=== PATIENT | female | born 1980 | race American Indian/Alaskan Native ===

== ENCOUNTER 2022-02-09 03:38 | Emergency (ER) | payer SELFPAY ==
[2022-02-09] MEDS ORDERED: MAGNESIUM SULFATE 2 GM/50 ML BAG IV ONE (05:25)
[2022-02-09] MEDS ORDERED: ALBUTEROL 2.5 MG/3 ML NEBU IH ONE (05:25)
[2022-02-09] MEDS ORDERED: IPRATROPIUM 0.02% NEBU 2.5 ML IH ONE (05:25)
[2022-02-09] MEDS ORDERED: METOCLOPRAMIDE 10 MG/2 ML INJ IV ONE (05:27)
[2022-02-09] MEDS ORDERED: dexAMETHasone 20 MG/5 ML VIAL IV ONE (05:27)
[2022-02-09] MEDS ORDERED: diphenhydrAMINE 50 MG/ML VIAL IV ONE (05:27)
[2022-02-09 05:58] LABS: Basophils % (Auto) 0.6 % (0.0-1.8); Eosinophils # (Auto) 0.1 K/mm3 (0.0-0.4); Eosinophils % (Auto) 1.8 % (0.0-4.3); Hematocrit 40.4 % (30.3-42.9); Hemoglobin 13.6 gm/dl (10.1-14.3); Lymphocytes % (Auto) 26.6 % (13.4-35.0); Mean Corpuscular HGB Conc 34 % (30-34); Mean Corpuscular Volume 99 fl (79-97); Monocytes # (Auto) 0.6 K/mm3 (0.0-0.8); Monocytes % (Auto) 8.1 % (0.0-7.3); Platelet Count 281 K/mm3 (140-440); Red Blood Count 4.08 M/mm3 (3.65-5.03); Red Cell Distribution Width 13.4 % (13.2-15.2)
[2022-02-09] MEDS ORDERED: SODIUM CHLORIDE 0.9% 1000 ML 1,000 ML ONE (06:05)
--- NOTE | 2022-02-09 06:19 | XRay Report ---
XR chest 1V ap INDICATION / CLINICAL INFORMATION: Asthma, dyspnea, chest tightness. COMPARISON: None available. FINDINGS: SUPPORT DEVICES: None. HEART /PULMONARY VASCULATURE: No significant abnormality. LUNGS / PLEURA: Faint pulmonary opacities are present within the medial right lung base. No sizable p leural effusion. No pneumothorax. ADDITIONAL FINDINGS: No significant additional findings. IMPRESSION: Faint pulmonary opacities in the medial right lung base, may reflect atelectasis or pneumonia. Signer Name: James Serrano MD Signed: 02/09/2022 6:14 AM Workstation Name: [id number]
[2022-02-09 06:23] LABS: Alanine Aminotransferase 13 units/L (7-56); Albumin 4.4 g/dL (3.9-5); BUN/Creatinine Ratio 19; Blood Urea Nitrogen 15 mg/dL (7-17); Calcium 9.2 mg/dL (8.4-10.2); Hemolysis Index 25
--- NOTE | 2022-02-09 07:40 | Emergency Department Report ---
ED Shortness of Breath HPI - General Chief Complaint: Adult Asthma Stated Complaint: CHEST PAINS/SOB Source: patient Mode of arrival: Ambulatory Limitations: No Limitations - History of Present Illness Initial Comments: Patient is a 41-year-old -[place] female with a history of asthma tobacco abuse who presents to the ED with complaint of acute onset persistent shortness of breath, persistent dry cough, chest tightness and wheezing for the last 5 days. 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 Patient states that it is in the chewing subsequent days, her shortness of breath and wheezing have been worsening despite using her albuterol inhaler. Patient states that in the last 12 hours she has not been able to sleep because of worsening shortness of breath and chest tightness, nausea and vomiting and persistent dry cough. Patient denies fever, chills, abdominal pain, dizziness, syncope, palpitations, sore throat, neck pain, diaphoresis, diarrhea, hemoptysis lightheadedness or headache. MD Complaint: shortness of breath, cough, "asthma attack" -: days(s) (5) Severity: severe Pain Scale: 7 Quality: dull, other (Chest tightness) Consistency: constant Improves With: nothing Worsens With: coughing Known History Of: asthma Context: recent URI, allergen exposure, smoke/fume exposure Associated Symptoms: denies other symptoms, cough, other (Nausea and vomiting) Treatments Prior to Arrival: bronchodilator - Related Data Home Oxygen Therapy: No Previous Rx's Medication Instructions Recorded Last Taken Type Benzonatate [Tessalon Perles] 100 mg PO Q8HR #30 cap 02/09/22 Unknown Rx Cetirizine HCl [Zyrtec 10mg tab] 10 mg PO DAILY #30 tab 02/09/22 Unknown Rx Doxycycline Hyclate 100 mg PO Q12H #20 cap 02/09/22 Unknown Rx Ipratropium/Albuterol Sulfate 1 - 2 puff IH Q6H PRN #1 inh 02/09/22 Unknown Rx [Combivent Respimat] Ondansetron [Zofran Odt] 4 mg PO Q8HR PRN #20 tab.rapdis 02/09/22 Unknown Rx predniSONE [Deltasone] 60 mg PO QDAY #15 tab 02/09/22 Unknown Rx Allergies Allergy/AdvReac Type Severity Reaction Status Date / Time methylprednisolone Allergy Swelling Verified 02/09/22 03:42 [From Solu-Medrol] ED Review of Systems ROS: Stated complaint: CHEST PAINS/SOB Other details as noted in HPI Constitutional: denies: chills, fever Eyes: denies: eye pain, eye discharge, vision change ENT: congestion. denies: ear pain, throat pain Respiratory: cough, shortness of breath, wheezing Cardiovascular: chest pain (Chest tightness). denies: palpitations Endocrine: no symptoms reported Gastrointestinal: nausea, vomiting. denies: abdominal pain, diarrhea Genitourinary: denies: urgency, dysuria, discharge Musculoskeletal: denies: back pain, joint swelling, arthralgia Skin: denies: rash, lesions Neurological: denies: headache, weakness, paresthesias Psychiatric: denies: anxiety, depression Hematological/Lymphatic: denies: easy bleeding, easy bruising ED Past Medical Hx - Past Medical History Previous Medical History?: Yes Hx Asthma: Yes - Medications Home Medications: Home Medications Medication Instructions Recorded Confirmed Last Taken Type Benzonatate [Tessalon Perles] 100 mg PO Q8HR #30 cap 02/09/22 Unknown Rx Cetirizine HCl [Zyrtec 10mg tab] 10 mg PO DAILY #30 tab 02/09/22 Unknown Rx Doxycycline Hyclate 100 mg PO Q12H #20 cap 02/09/22 Unknown Rx Ipratropium/Albuterol Sulfate 1 - 2 puff IH Q6H PRN #1 inh 02/09/22 Unknown Rx [Combivent Respimat] Ondansetron [Zofran Odt] 4 mg PO Q8HR PRN #20 tab.rapdis 02/09/22 Unknown Rx predniSONE [Deltasone] 60 mg PO QDAY #15 tab 02/09/22 Unknown Rx ED Physical Exam - General Limitations: No Limitations General appearance: alert, in no apparent distress - Head Head exam: Present: atraumatic, normocephalic, normal inspection - Eye Eye exam: Present: normal appearance, PERRL, EOMI Pupils: Present: normal accommodation - ENT ENT exam: Present: normal orophraynx, mucous membranes moist, TM's normal bilaterally, normal external ear exam, other (Grossly congested nasal passages) - Neck Neck exam: Present: normal inspection, full ROM - Respiratory Respiratory exam: Present: respiratory distress (Mild respiratory distress), wheezes (Diffuse coarse wheezes throughout), accessory muscle use. Absent: normal lung sounds bilaterally, rales, rhonchi, stridor, chest wall tenderness, decreased breath sounds, prolonged expiratory - Cardiovascular Cardiovascular Exam: Present: normal rhythm, tachycardia, normal heart sounds. Absent: systolic murmur, diastolic murmur, rubs, gallop - GI/Abdominal GI/Abdominal exam: Present: soft, normal bowel sounds. Absent: tenderness, guarding, rebound, organomegaly - Extremities Exam Extremities exam: Present: normal inspection, full ROM, normal capillary refill. Absent: tenderness - Back Exam Back exam: Present: normal inspection, full ROM. Absent: tenderness, CVA tenderness (R), CVA tenderness (L), muscle spasm, paraspinal tenderness, vertebral tenderness - Neurological Exam Neurological exam: Present: alert, oriented X3, CN II-XII intact, normal gait, reflexes normal - Psychiatric Psychiatric exam: Present: normal affect, normal mood - Skin Skin exam: Present: warm, dry, intact, normal color. Absent: rash ED Course Vital Signs 02/09/22 03:39 Temperature 98.2 F Pulse Rate 107 H Respiratory 22 Rate Blood Pressure 141/93 [Left] O2 Sat by Pulse 98 Oximetry ED Medical Decision Making - Lab Data Result diagrams: 02/09/22 05:40 02/09/22 05:40 - Radiology Data Radiology results: report reviewed, image reviewed [address] [address] XRay Report Signed Patient: MARIANO PARRA MR#: [id number] : 1980 Acct:[id number] Age/Sex: 41 / F ADM Date: 02/09/22 Loc: ED Attending Dr: Ordering Physician: ASA ANDERSON Date of Service: 02/09/22 Procedure(s): XR chest 1V ap Accession Number(s): [id number] cc: ASA ANDERSON Fluoro Time In Minutes: XR chest 1V ap INDICATION / CLINICAL INFORMATION: Asthma, dyspnea, chest tightness. COMPARISON: None available. FINDINGS: SUPPORT DEVICES: None. HEART /PULMONARY VASCULATURE: No significant abnormality. LUNGS / PLEURA: Faint pulmonary opacities are present within the medial right lung base. No sizable pleural effusion. No pneumothorax. ADDITIONAL FINDINGS: No significant additional findings. IMPRESSION: Faint pulmonary opacities in the medial right lung base, may reflect atelectasis or pneumonia. Signer Name: Juancarlos Serrano MD Signed: 02/09/2022 6:14 AM Workstation Name: [id number] Transcribed By: JS Dictated By: JUANCARLOS SERRANO MD Electronically Authenticated By: JUANCARLOS SERRANO MD Signed Date/Time: 02/09/22613 DD/ 2 TD/TT: - Medical Decision Making This is a 41-year-old -[place] female with a history of asthma tobacco abuse who presents to the ED with complaint of acute onset persistent shortness of breath, persistent dry cough, chest tightness and wheezing for the last 5 days. 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 Patient states that it is in the chewing subsequent days, her shortness of breath and wheezing have been worsening despite using her albuterol inhaler. Patient states that in the last 12 hours she has not been able to sleep because of worsening shortness of breath and chest tightness, nausea and vomiting and persistent dry cough. In the ED, patient is alert and oriented x3 and is not in any distress. Patient is however tachycardic but afebrile in triage with oxygen saturation of 98% on room air. Patient was treated in the ED with DuoNeb for 1 hour, also given Decadron 10 mg IV x1, antiemetics. On reevaluation, p atient felt better, wheezing resolved and patient use of accessory muscles resolved as well. Chest x-ray showed no acute cardiopulmonary abnormalities or pneumonitis. Patient was discharged home on medications and advised to follow- up with her primary care physician in 5 to 7 days for reevaluation or return to the ED immediately if symptoms get worse. - Differential Diagnosis Asthma; bronchitis; pneumonia; URI; COVID-19; rhinitis; Critical care attestation.: If time is entered above; I have spent that time in minutes in the direct care of this critically ill patient, excluding procedure time. ED Disposition Clinical Impression: Acute bronchitis with asthma with acute exacerbation, Shortness of breath Community acquired pneumonia Qualifiers: Laterality: right Lung location: lower lobe of lung Qualified Code(s): J18.9 - Pneumonia, unspecified organism Disposition: HOME / SELF CARE / HOMELESS Is pt being admited?: No Does the pt Need Aspirin: No Condition: Stable Instructions: Bacterial Pneumonia (ED), Shortness of Breath, Adult, [id number], Cough, Adult, [id number], Acute Bronchitis, Adult, [id number]-[id number], Asthma, Adult, [id number], Community-Acquired Pneumonia, Adult, [id number] Additional Instructions: All lab test results were reviewed and are all nonactionable. Chest x-ray showed faint pulmonary opacities in the medial right lung base, may reflect atelectasis or pneumonia. Therefore take medication with food, drink plenty of fluids, follow-up with your primary care physician in 5 to 7 days for reevaluation. Return to the ED immediately if symptoms get worse. Prescriptions: Ipratropium/Albuterol Sulfate [Combivent Respimat] 1 - 2 puff IH Q6H PRN #1 inh PRN Reason: Shortness Of Breath predniSONE [Deltasone] 60 mg PO QDAY #15 tab Doxycycline Hyclate 100 mg PO Q12H #20 cap Benzonatate [Tessalon Perles] 100 mg PO Q8HR #30 cap Ondansetron [Zofran Odt] 4 mg PO Q8HR PRN #20 tab.rapdis PRN Reason: Nausea Cetirizine HCl [Zyrtec 10mg tab] 10 mg PO DAILY #30 tab Referrals: TIM JIMENEZ MD [Staff Physician] - 3-5 Days Forms: Work/School Release Form(ED) Time of Disposition: 07:46 Print Language: MICRONESIAN
[2022-02-09] MEDS ORDERED: AZITHROMYCIN 250 MG TAB PO ONE (07:43)
[2022-02-09] MEDS ORDERED: cefTRIAXone/NS 1 GM/50 ML 1 GM/50 ML BAG IV ONE (07:44)
[2022-02-09 08:40] VITALS: BP 127/72
--- NOTE | 2022-02-09 11:18 | Electrocardiograph Report ---
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
== END 2022-02-09 08:39 | disposition home or self-care (01) ==
LOC: ED 03:38
DX: J20.9 Acute bronchitis, unspecified (principal); J45.901 Unspecified asthma with (acute) exacerbation; R06.02 Shortness of breath; J18.9 Pneumonia, unspecified organism; Z88.8 Allergy status to other drugs, medicaments and biological substances
CPT/HCPCS: 36415; 71045; 80053; 84484; 85025; 93005; 94640; 96365; 96375; 99284; J1100; J1200; J2765; J3475; J7030